=== PATIENT | male | born 2000 | race Two or more races ===

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

== ENCOUNTER 2022-03-06 19:06 | Emergency (ER) | payer OTHER ==
[2022-03-06 19:40] VITALS: BP 154/77; PULSE 57; TEMP 98.6; BMI 19.4
[2022-03-06] MEDS ORDERED: KETOROLAC TROMETHAMINE 15 MG/ML VIAL IM ONE (21:25)
[2022-03-06] MEDS ORDERED: METHOCARBAMOL 500 MG TABLET PO ONE (21:25)
[2022-03-06] MEDS ORDERED: KETOROLAC TROMETHAMINE 15 MG/ML VIAL ONE (21:30)
[2022-03-06] MEDS ORDERED: METHOCARBAMOL 500 MG TABLET ONE (21:30)
== END 2022-03-06 22:06 | disposition home or self-care (01) ==
LOC: JERFT 19:06
PROC: 3E0233Z Introduction of Anti-inflammatory into Muscle, Percutaneous Approach (ICD-10-PCS; principal; 2022-03-06)
DX: M79.10 Myalgia, unspecified site (principal)
CPT/HCPCS: 99284-25

== ENCOUNTER 2025-06-28 14:17 | Emergency (ER) | payer OTHER ==
[2025-06-28 14:28] VITALS: RESP 19; TEMP 97.9; BMI 19.8
[2025-06-28] MEDS ORDERED: ACETAMINOPHEN 325 MG TABLET (FP) ONE (15:13)
[2025-06-28] MEDS: ACETAMINOPHEN 325 MG TABLET (FP) PO ONE (15:58)
[2025-06-28 19:06] VITALS: BP 128/80; PULSE 80
== END 2025-06-28 19:33 | disposition home or self-care (01) ==
LOC: JER 14:17
DX: N50.811 Right testicular pain (principal); N50.812 Left testicular pain; W22.8XXA Striking against or struck by other objects, initial encounter
CPT/HCPCS: 76870-TC; 99284-25